=== PATIENT | male | born 1950 | race Caucasian/White ===

== ENCOUNTER 2016-11-05 08:09 | Outpatient (CLI) | payer OTHER | END 2016-11-05 08:10 | LOC: LAB 08:09 | PROVIDERS: ATTEND Family Medicine | DX: I48.91 Unspecified atrial fibrillation (principal); Z79.01 Long term (current) use of anticoagulants | CPT/HCPCS: 36415; 85610 ==

== ENCOUNTER 2016-12-06 07:02 | Outpatient (CLI) | payer OTHER | END 2016-12-06 07:03 | LOC: LAB 07:02 | PROVIDERS: ATTEND Family Medicine | DX: I48.91 Unspecified atrial fibrillation (principal); Z79.01 Long term (current) use of anticoagulants | CPT/HCPCS: 36415; 85610 ==

== ENCOUNTER 2017-01-10 09:38 | Outpatient (CLI) | payer OTHER | END 2017-01-10 09:40 | LOC: LAB 09:38 | PROVIDERS: ATTEND Family Medicine | DX: Z51.81 Encounter for therapeutic drug level monitoring (principal); Z79.01 Long term (current) use of anticoagulants; I48.91 Unspecified atrial fibrillation | CPT/HCPCS: 36415; 85610 ==

== ENCOUNTER 2017-02-16 10:14 | Outpatient (CLI) | payer OTHER | END 2017-02-16 10:15 | LOC: LAB 10:14 | PROVIDERS: ATTEND Family Medicine | DX: Z51.81 Encounter for therapeutic drug level monitoring (principal); Z79.01 Long term (current) use of anticoagulants; I48.91 Unspecified atrial fibrillation | CPT/HCPCS: 36415; 85610 ==

== ENCOUNTER 2017-02-28 08:05 | Outpatient (CLI) | payer OTHER | END 2017-02-28 08:06 | LOC: LAB 08:05 | PROVIDERS: ATTEND Family Medicine | DX: I48.91 Unspecified atrial fibrillation (principal); Z79.01 Long term (current) use of anticoagulants | CPT/HCPCS: 36415; 85610 ==

== ENCOUNTER 2017-03-04 08:25 | Outpatient (CLI) | payer OTHER | END 2017-03-04 08:26 | LOC: LAB 08:25 | PROVIDERS: ATTEND Family Medicine | DX: I48.91 Unspecified atrial fibrillation (principal); Z79.01 Long term (current) use of anticoagulants | CPT/HCPCS: 36415; 85610 ==

== ENCOUNTER 2017-04-11 14:19 | Outpatient (CLI) | payer OTHER | END 2017-04-11 14:20 | LOC: LAB 14:19 | PROVIDERS: ATTEND Family Medicine | DX: Z51.81 Encounter for therapeutic drug level monitoring (principal); Z79.01 Long term (current) use of anticoagulants | CPT/HCPCS: 36415; 85610 ==

== ENCOUNTER 2017-04-25 07:09 | Outpatient (CLI) | payer OTHER | END 2017-04-25 07:10 | LOC: LAB 07:09 | PROVIDERS: ATTEND Family Medicine | DX: I48.91 Unspecified atrial fibrillation (principal); Z79.01 Long term (current) use of anticoagulants | CPT/HCPCS: 36415; 85610 ==

== ENCOUNTER 2017-05-09 07:00 | Outpatient (CLI) | payer OTHER | END 2017-05-09 07:10 | LOC: LAB 07:00 | PROVIDERS: ATTEND Family Medicine | DX: I48.91 Unspecified atrial fibrillation (principal); Z79.01 Long term (current) use of anticoagulants | CPT/HCPCS: 36415; 85610 ==

== ENCOUNTER 2017-06-13 07:49 | Outpatient (CLI) | payer OTHER | END 2017-06-13 07:50 | LOC: LAB 07:49 | PROVIDERS: ATTEND Family Medicine | DX: I48.91 Unspecified atrial fibrillation (principal); Z79.01 Long term (current) use of anticoagulants | CPT/HCPCS: 36415; 85610 ==

== ENCOUNTER 2017-07-01 14:49 | Outpatient (CLI) | payer OTHER ==
[2017-07-01 16:16] LABS: eGFR (African) > 60; eGFR (Non-African) > 60
== END 2017-07-01 14:50 ==
LOC: LAB 14:49
PROVIDERS: ATTEND Family Medicine
DX: E78.5 Hyperlipidemia, unspecified (principal)
CPT/HCPCS: 36415; 80053; 80061; 85610

== ENCOUNTER 2017-07-26 11:32 | Outpatient (CLI) | payer OTHER | END 2017-07-26 11:33 | LOC: LAB 11:32 | PROVIDERS: ATTEND Family Medicine | DX: Z86.718 Personal history of other venous thrombosis and embolism (principal) | CPT/HCPCS: 36415; 85610 ==

== ENCOUNTER 2017-08-24 09:38 | Outpatient (CLI) | payer OTHER | END 2017-08-24 09:40 | LOC: LAB 09:38 | PROVIDERS: ATTEND Family Medicine | DX: I48.91 Unspecified atrial fibrillation (principal); Z79.01 Long term (current) use of anticoagulants | CPT/HCPCS: 36415; 85610 ==

== ENCOUNTER 2017-09-12 16:01 | Outpatient (CLI) | payer OTHER | END 2017-09-12 16:02 | LOC: LAB 16:01 | PROVIDERS: ATTEND Family Medicine | DX: I48.91 Unspecified atrial fibrillation (principal); Z51.81 Encounter for therapeutic drug level monitoring | CPT/HCPCS: 36415; 85610 ==

== ENCOUNTER 2017-10-06 09:53 | Outpatient (CLI) | payer OTHER ==
[2017-10-07 00:31] LABS: DIRECT BILIRUBIN <0.2 mg/dL (<0.4); TOTAL PROTEIN 7.1 g/dL (6.0-8.5)
== END 2017-10-06 10:00 ==
LOC: LAB 09:53
PROVIDERS: ATTEND Family Medicine
DX: B35.1 Tinea unguium (principal); Z79.899 Other long term (current) drug therapy; Z51.81 Encounter for therapeutic drug level monitoring; I48.91 Unspecified atrial fibrillation
CPT/HCPCS: 36415; 80076; 85610

== ENCOUNTER 2017-11-08 13:43 | Outpatient (CLI) | payer OTHER | END 2017-11-08 13:44 | LOC: LAB 13:43 | PROVIDERS: ATTEND Family Medicine | DX: I48.91 Unspecified atrial fibrillation (principal); Z51.81 Encounter for therapeutic drug level monitoring | CPT/HCPCS: 36415; 85610 ==

== ENCOUNTER 2017-12-07 13:56 | Outpatient (CLI) | payer OTHER ==
[2017-12-07 21:21] LABS: DIRECT BILIRUBIN <0.2 mg/dL (<0.4); TOTAL PROTEIN 7.4 g/dL (6.0-8.5)
== END 2017-12-07 13:57 ==
LOC: LAB 13:56
PROVIDERS: ATTEND Physician Assistant
DX: I48.91 Unspecified atrial fibrillation (principal); Z51.81 Encounter for therapeutic drug level monitoring; Z79.899 Other long term (current) drug therapy
CPT/HCPCS: 36415; 80076; 85610

== ENCOUNTER 2018-01-03 11:24 | Outpatient (CLI) | payer OTHER | END 2018-01-03 11:25 | LOC: LAB 11:24 | PROVIDERS: ATTEND Family Medicine | DX: I48.91 Unspecified atrial fibrillation (principal); Z79.899 Other long term (current) drug therapy | CPT/HCPCS: 36415; 85610 ==

== ENCOUNTER 2018-02-10 15:08 | Outpatient (CLI) | payer OTHER | END 2018-02-10 15:10 | LOC: LAB 15:08 | PROVIDERS: ATTEND Family Medicine | DX: Z79.01 Long term (current) use of anticoagulants (principal); I48.91 Unspecified atrial fibrillation | CPT/HCPCS: 36415; 85610 ==

== ENCOUNTER 2018-03-14 15:31 | Outpatient (CLI) | payer OTHER | END 2018-03-14 15:32 | LOC: LAB 15:31 | PROVIDERS: ATTEND Family Medicine | DX: Z79.01 Long term (current) use of anticoagulants (principal); I48.91 Unspecified atrial fibrillation | CPT/HCPCS: 36415; 85610 ==

== ENCOUNTER 2018-03-31 12:08 | Outpatient (CLI) | payer OTHER | END 2018-03-31 15:00 | LOC: LAB 12:08 | PROVIDERS: ATTEND Family Medicine | DX: I48.91 Unspecified atrial fibrillation (principal); Z79.01 Long term (current) use of anticoagulants | CPT/HCPCS: 36415; 85610 ==

== ENCOUNTER 2018-04-26 15:28 | Outpatient (CLI) | payer OTHER | END 2018-04-26 15:32 | LOC: LAB 15:28 | PROVIDERS: ATTEND Family Medicine | DX: Z79.01 Long term (current) use of anticoagulants (principal); I48.91 Unspecified atrial fibrillation | CPT/HCPCS: 36415; 85610 ==

== ENCOUNTER 2018-06-05 14:44 | Outpatient (CLI) | payer OTHER | END 2018-06-05 14:46 | LOC: LAB 14:44 | PROVIDERS: ATTEND Family Medicine | DX: Z79.01 Long term (current) use of anticoagulants (principal); I48.91 Unspecified atrial fibrillation | CPT/HCPCS: 36415; 85610 ==

== ENCOUNTER 2018-07-13 15:40 | Outpatient (CLI) | payer OTHER | END 2018-07-13 15:42 | LOC: LAB 15:40 | PROVIDERS: ATTEND Family Medicine | DX: Z79.01 Long term (current) use of anticoagulants (principal); I48.91 Unspecified atrial fibrillation | CPT/HCPCS: 36415; 85610 ==

== ENCOUNTER 2018-07-31 12:48 | Outpatient (CLI) | payer OTHER | END 2018-07-31 12:50 | LOC: LAB 12:48 | PROVIDERS: ATTEND Family Medicine | DX: I48.91 Unspecified atrial fibrillation (principal); Z79.01 Long term (current) use of anticoagulants | CPT/HCPCS: 36415; 85610 ==

== ENCOUNTER 2018-09-12 11:23 | Outpatient (CLI) | payer OTHER | END 2018-09-12 11:25 | LOC: LAB 11:23 | PROVIDERS: ATTEND Family Medicine | DX: I48.91 Unspecified atrial fibrillation (principal); Z79.01 Long term (current) use of anticoagulants | CPT/HCPCS: 36415; 85610 ==

== ENCOUNTER 2018-10-12 07:56 | Outpatient (CLI) | payer OTHER | END 2018-10-12 07:58 | LOC: LAB 07:56 | PROVIDERS: ATTEND Family Medicine | DX: Z79.01 Long term (current) use of anticoagulants (principal); I48.91 Unspecified atrial fibrillation | CPT/HCPCS: 36415; 85610 ==

== ENCOUNTER 2018-11-13 14:31 | Outpatient (CLI) | payer OTHER | END 2018-11-13 14:33 | LOC: LAB 14:31 | PROVIDERS: ATTEND Family Medicine | DX: I48.91 Unspecified atrial fibrillation (principal); Z79.01 Long term (current) use of anticoagulants | CPT/HCPCS: 36415; 85610 ==

== ENCOUNTER 2018-12-12 13:21 | Outpatient (CLI) | payer OTHER | END 2018-12-12 13:25 | LOC: LAB 13:21 | PROVIDERS: ATTEND Family Medicine | DX: I48.91 Unspecified atrial fibrillation (principal); Z79.01 Long term (current) use of anticoagulants | CPT/HCPCS: 36415; 85610 ==

== ENCOUNTER 2019-01-12 10:03 | Outpatient (CLI) | payer OTHER | END 2019-01-12 10:10 | LOC: LAB 10:03 | PROVIDERS: ATTEND Family Medicine | DX: I48.91 Unspecified atrial fibrillation (principal); Z79.01 Long term (current) use of anticoagulants | CPT/HCPCS: 36415; 85610 ==

== ENCOUNTER 2019-05-04 14:12 | Outpatient (CLI) | payer OTHER | END 2019-05-04 14:13 | LOC: LAB 14:12 | PROVIDERS: ATTEND Family Medicine | DX: I48.91 Unspecified atrial fibrillation (principal) | CPT/HCPCS: 36415; 85610 ==

== ENCOUNTER 2019-06-11 13:09 | Outpatient (CLI) | payer OTHER | END 2019-06-11 13:11 | LOC: LAB 13:09 | PROVIDERS: ATTEND Family Medicine | DX: I48.91 Unspecified atrial fibrillation (principal); Z79.01 Long term (current) use of anticoagulants | CPT/HCPCS: 36415; 85610 ==

== ENCOUNTER 2019-07-05 13:22 | Outpatient (CLI) | payer OTHER | END 2019-07-05 13:24 | LOC: LAB 13:22 | PROVIDERS: ATTEND Family Medicine | DX: I48.91 Unspecified atrial fibrillation (principal); Z79.01 Long term (current) use of anticoagulants | CPT/HCPCS: 36415; 85610 ==

== ENCOUNTER 2019-08-27 15:24 | Outpatient (CLI) | payer OTHER ==
--- NOTE | 2019-08-27 16:34 | Diagnostic Imaging Report ---
PATIENT MR#: [id number] PATIENT PATIENT NAME: MALDONADO VYAS DATE OF : 1950 REFERRING PHYSICIAN: Storm Baez EXAM DATE: 08/27/2019 ACCESSION NUMBER: [id number] EXAM DESCRIPTION: KNEE 3 VIEWS CLINICAL HISTORY: ACUTE LEFT KNEE PAIN COMPARISON: No study for comparison is available at the time of interpretation. TECHNIQUE: DX left knee, 3 views Osseous structures: There is a broad osteophyte at the medial articular surface of the patella, with irregularity of the adjacent femoral condyle which may represent osteochondral degeneration. Joint spaces: The bones are well aligned. No articular surface abnormality is noted. Soft tissues: There is a mild-moderate suprapatellar effusion. 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 Consider further evaluation with MRI to exclude acute osteochondral injury. Read by: Dr. Pancho Pozo Transcribed by: Pancho Pozo Transcribed Date: 08/27/2019 4:33:33 PM Electronically signed by: Dr. Pancho Pozo Date signed: 08/27/2019 4:33:33 PM
== END 2019-08-27 15:34 ==
LOC: RAD 15:24
PROVIDERS: ATTEND Family Medicine
DX: M25.562 Pain in left knee (principal)
CPT/HCPCS: 73562

== ENCOUNTER 2019-08-29 10:35 | Outpatient (CLI) | payer OTHER ==
[2019-08-29 11:58] LABS: eGFR (Non-African) > 60
[2019-08-29 11:59] LABS: HDL 38 mg/dL (>40)
== END 2019-08-29 10:40 ==
LOC: LAB 10:35
PROVIDERS: ATTEND Family Medicine
DX: Z51.81 Encounter for therapeutic drug level monitoring (principal); Z79.01 Long term (current) use of anticoagulants; I48.91 Unspecified atrial fibrillation; E78.5 Hyperlipidemia, unspecified
CPT/HCPCS: 36415; 80053; 80061; 85610

== ENCOUNTER 2019-10-18 11:12 | Outpatient (CLI) | payer OTHER | END 2019-10-18 11:17 | LOC: LAB 11:12 | PROVIDERS: ATTEND Family Medicine | DX: Z51.81 Encounter for therapeutic drug level monitoring (principal); Z79.01 Long term (current) use of anticoagulants; I48.91 Unspecified atrial fibrillation | CPT/HCPCS: 36415; 85610 ==